=== PATIENT | male | born 1985 | race Caucasian/White ===

== ENCOUNTER 2024-01-23 17:17 | Emergency (ER) | payer OTHER ==
[2024-01-23] MEDS: Ketorolac 30 MG/ML SDV IM ONE (17:53)
[2024-01-23] MEDS: Orphenadrine 60 MG/2 ML Inj IM ONE (17:54)
== END 2024-01-23 18:30 | disposition home or self-care (01) ==
LOC: EDBD 17:17 → JD.ED 17:17
DX: M62.830 Muscle spasm of back (principal)
CPT/HCPCS: 96372; 99283; J1885; J2360